=== PATIENT | female | born 1955 | race African-American/Black ===

== ENCOUNTER 2016-05-09 12:13 | Emergency (ER) | payer OTHER ==
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
== END 2016-05-09 14:07 | disposition home or self-care (01) ==
LOC: CFTX 12:13
DX: S16.1XXA Strain of muscle, fascia and tendon at neck level, initial encounter (principal); S49.92XA Unspecified injury of left shoulder and upper arm, initial encounter; E11.9 Type 2 diabetes mellitus without complications; Z87.891 Personal history of nicotine dependence; V43.52XA Car driver injured in collision with other type car in traffic accident, initial encounter; Y92.410 Unspecified street and highway as the place of occurrence of the external cause
CPT/HCPCS: 72040; 73030; 96372; 99284; J1885